=== PATIENT | female | born 1945 | race Caucasian/White ===

== ENCOUNTER 2016-09-28 15:39 | Inpatient (IN) | payer OTHER ==
[~2016-09-28] VITALS: Ht 160 cm; Wt 109.1 kg
[~2016-09-28 15:39] MED LIST: FLEXERIL5 MG PO
[2016-09-28 16:31] LABS: HEMATOCRIT 38.2 % (36.0-46.0); MCH 29.9 PG (29.0-34.0); MCHC 34.6 G/DL (30.0-36.0); MCV 86.6 FL (83-99); MEAN PLAT.VOLUME 9.7 uM^3 (9.5-12.4); PLATELET COUNT 313 K/uL (156-360); RBC DIS.WIDTH-CV 11.7 % (11.8-14.6); RBC DIS.WIDTH-SD 37.2 % (39-53); RED BLOOD COUNT 4.41 M/uL (3.80-5.20); WHITE BLOOD COUNT 9.4 K/uL (4.1-10.2)
[2016-09-28 16:39] LABS: CHLORIDE 102 mEq/L (99-109); POTASSIUM 3.6 mEq/L (3.7-5.4); SODIUM 134 mEq/L (136-147)
[2016-09-28 16:43] LABS: ANION GAP 10 MEQ/L (2-14); TOTAL BILIRUBIN 0.5 mg/dL (0.0-1.0)
[2016-09-28 16:44] LABS: GLUCOSE 468 mg/dL (70-99)
[2016-09-28 16:45] LABS: ALKALINE PHOSPHATASE 101 IU/L (3-129); GFR ESTIMATE (CALCULATED) 58 mL/min/
[2016-09-28 16:46] LABS: UREA NITROGEN (BUN) 15 mg/dL (9-23)
[2016-09-28 19:06] LABS: CARBON DIOXIDE (BICARBONATE) 25.7 MEQ/L (20-31)
[2016-09-28] MEDS ORDERED: AMLODIPINE-BEN1 EAC5 PO (19:36)
[2016-09-28 20:19] LABS: ADD MIUA? YES; BILIRUBIN NEGATIVE; BLOOD SMALL; COLOR YELLOW ((YELLOW)); GLUCOSE (STRIP) >=500; KETONES 20; LEUKOCYTES NEGATIVE; NITRITE NEGATIVE; PROTEIN (STRIP) NEGATIVE; SPECIFIC GRAVITY 1.025 (1.000-1.030); UROBILINOGEN 0.2 MG/DL (0.2-1.0)
[2016-09-28 20:29] LABS: BACTERIA NONE SEEN /HPF; EPITHELIAL CELLS RARE /HPF; MUCUS TRACE /LPF
[2016-09-28 21:22] LABS: POINT-OF-CARE METER ID UU13113800
[2016-09-28 23:33] VITALS: BP 147/64
[2016-09-28 23:39] LABS: POINT-OF-CARE METER ID UU14162508
[2016-09-29 04:27] VITALS: BP 137/68
[2016-09-29 07:15] VITALS: BP 135/67
[2016-09-29 11:40] VITALS: BP 132/64
[2016-09-29 15:00] VITALS: BP 148/70
[2016-09-29 16:31] LABS: POINT-OF-CARE USER ID PUTDRM
[2016-09-29 21:41] VITALS: BP 137/59
[2016-09-30 00:06] VITALS: BP 141/65
[2016-09-30 04:40] VITALS: BP 140/62
[2016-09-30 07:36] LABS: EOSINOPHIL (%) 1.9 % (0-5); EOSINOPHIL COUNT 0.1 K/uL (0-0.3); HEMATOCRIT 31.2 % (36.0-46.0); IMMATURE GRANULOCYTE (%) 0.4 % (0.0-0.7); INSTRUMENT ABS NEUTROPHIL CT 5.1 K/uL; LYMPHOCYTE COUNT 1.1 K/uL (1.0-2.8); MCH 29.7 PG (29.0-34.0); MCHC 33.7 G/DL (30.0-36.0); MCV 88.1 FL (83-99); MEAN PLAT.VOLUME 9.7 uM^3 (9.5-12.4); MONOCYTE (%) 6.1 % (3-12); MONOCYTE COUNT 0.4 K/uL (0-0.8); NEUTROPHIL (%) 75.7 % (45-76); NEUTROPHIL COUNT 5.1 K/uL (1.8-6.4); PLATELET COUNT 281 K/uL (156-360); RBC DIS.WIDTH-CV 11.6 % (11.8-14.6); RBC DIS.WIDTH-SD 37.5 % (39-53); RED BLOOD COUNT 3.54 M/uL (3.80-5.20); WHITE BLOOD COUNT 6.7 K/uL (4.1-10.2)
[2016-09-30 07:40] VITALS: BP 137/67
[2016-09-30 07:58] LABS: ALKALINE PHOSPHATASE 74 IU/L (3-129); ANION GAP 7 MEQ/L (2-14); CHLORIDE 106 MEQ/L (99-109); POTASSIUM 3.8 MEQ/L (3.7-5.4); SAMPLE HEMOLYSIS CHECK 0; SAMPLE ICTERIC CHECK 0; SAMPLE LIPEMIA CHECK 0; SODIUM 137 MEQ/L (136-147); TOTAL BILIRUBIN 0.6 MG/DL (0.0-1.0); UREA NITROGEN (BUN) 8 mg/dL (9-23)
[2016-09-30 08:00] LABS: GFR ESTIMATE (CALCULATED) > 59 mL/min/; GLUCOSE 223 mg/dL (70-99)
[2016-09-30 10:17] LABS: POINT-OF-CARE METER ID UU13113778
[2016-09-30 16:05] VITALS: BP 144/69
[2016-09-30 21:50] LABS: POINT-OF-CARE METER ID UU14162508
[2016-09-30 23:49] VITALS: BP 167/76
[2016-10-01 00:22] LABS: C DIFF TOXIN NEGATIVE (NEGATIVE)
[2016-10-01 00:25] LABS: PROBE CHECK PASS; SPECIMEN PROCESSING CONTROL PASS
[2016-10-01 07:55] VITALS: BP 156/74
[2016-10-01 15:20] VITALS: BP 149/71
[2016-10-01 23:25] VITALS: BP 135/61
[2016-10-02 08:20] VITALS: BP 138/65
[2016-10-02 16:58] VITALS: BP 173/77
[2016-10-02 23:45] VITALS: BP 142/68
[2016-10-03 08:08] VITALS: BP 151/68
[2016-10-03 12:16] LABS: GFR ESTIMATE (CALCULATED) > 59 mL/min/; VANCOMYCIN, TROUGH 13.2 MCG/ML (10-20)
[2016-10-03 14:10] VITALS: BP 189/78
[2016-10-03 18:34] VITALS: BP 157/69
[2016-10-03 23:28] VITALS: BP 142/65
[2016-10-04 06:46] LABS: EOSINOPHIL (%) 2.7 % (0-5); EOSINOPHIL COUNT 0.2 K/uL (0-0.3); HEMATOCRIT 32.9 % (36.0-46.0); IMMATURE GRANULOCYTE (%) 0.3 % (0.0-0.7); INSTRUMENT ABS NEUTROPHIL CT 4.5 K/uL; LYMPHOCYTE COUNT 1.2 K/uL (1.0-2.8); MCV 88.2 FL (83-99); MEAN PLAT.VOLUME 9.1 uM^3 (9.5-12.4); MONOCYTE (%) 7.5 % (3-12); MONOCYTE COUNT 0.5 K/uL (0-0.8); NEUTROPHIL (%) 70.9 % (45-76); NEUTROPHIL COUNT 4.5 K/uL (1.8-6.4); PLATELET COUNT 335 K/uL (156-360); RBC DIS.WIDTH-CV 11.9 % (11.8-14.6); RBC DIS.WIDTH-SD 38.5 % (39-53); RED BLOOD COUNT 3.73 M/uL (3.80-5.20); WHITE BLOOD COUNT 6.4 K/uL (4.1-10.2)
[2016-10-04 07:10] LABS: ALKALINE PHOSPHATASE 74 IU/L (3-129); ANION GAP 9 MEQ/L (2-14); CHLORIDE 109 MEQ/L (99-109); GFR ESTIMATE (CALCULATED) > 59 mL/min/; GLUCOSE 119 mg/dL (70-99); POTASSIUM 3.6 MEQ/L (3.7-5.4); SAMPLE HEMOLYSIS CHECK 0; SAMPLE ICTERIC CHECK 0; SAMPLE LIPEMIA CHECK 0; SODIUM 142 MEQ/L (136-147); TOTAL BILIRUBIN 0.5 MG/DL (0.0-1.0); UREA NITROGEN (BUN) 7 mg/dL (9-23)
[2016-10-04 07:15] LABS: Estimated Average Glucose 312 mg/dL (70-123); HEMOGLOBIN A1c (GLYCOHEMOGLOB) 12.5 % HGB (Below 5.7)
[2016-10-04 08:00] VITALS: BP 139/87
[2016-10-04 11:54] VITALS: BP 160/73
[2016-10-04 14:53] VITALS: BP 171/71
[2016-10-04 23:17] VITALS: BP 169/72
[2016-10-05 06:55] VITALS: BP 191/81
[2016-10-05] MEDS ORDERED: TYLENOL REGULA325 MG PO (11:24)
[2016-10-05] MEDS ORDERED: GLUCOVANCE 51 TABLET PO (11:24)
[2016-10-05] MEDS ORDERED: APRESOLINE50 MG PO (11:24)
[2016-10-05] MEDS ORDERED: XARELTO20 MG PO (11:24)
== END 2016-10-05 13:10 | disposition home or self-care (01) | DRG 540 ==
LOC: EME 15:39 → 2EASTP 21:31 → EDOF 21:31 → 2EASTP 22:22
PROVIDERS: Internal Medicine; Nurse Practitioner Family; Physician Assistant Medical
DX: M86.671 Other chronic osteomyelitis, right ankle and foot (principal); E11.69 Type 2 diabetes mellitus with other specified complication; E11.52 Type 2 diabetes mellitus with diabetic peripheral angiopathy with gangrene; L03.031 Cellulitis of right toe; L03.115 Cellulitis of right lower limb; I10 Essential (primary) hypertension; I73.9 Peripheral vascular disease, unspecified; M20.42 Other hammer toe(s) (acquired), left foot; M20.41 Other hammer toe(s) (acquired), right foot; E66.9 Obesity, unspecified; Z68.41 Body mass index [BMI] 40.0-44.9, adult; M20.10 Hallux valgus (acquired), unspecified foot; E11.65 Type 2 diabetes mellitus with hyperglycemia; E78.5 Hyperlipidemia, unspecified; W22.8XXA Striking against or struck by other objects, initial encounter; S93.114A Dislocation of interphalangeal joint of right lesser toe(s), initial encounter; I82.532 Chronic embolism and thrombosis of left popliteal vein
CPT/HCPCS: 73660; 80053; 80202; 81003; 82010; 82565; 82803; 82948; 83036; 83605; 85025; 85027; 87040; 87070; 87075; 87077; 87106; 87147; 87186; 87205; 87493; 93925; 99281; 99285; J0690; J1650; J1815; J2543; J3370; J7030; J7050

== ENCOUNTER → 2016-10-10 | Outpatient (CLI) | payer MEDICARE ==
[~2016-10-10] MED LIST changes: +AMLODIPINE-BEN1 EAC5 PO; +APRESOLINE50 MG PO; +GLUCOVANCE 51 TABLET PO; +TYLENOL REGULA325 MG PO; +XARELTO20 MG PO
== END | disposition home or self-care (01) ==
LOC: CDC 12:44
DX: E11.42 Type 2 diabetes mellitus with diabetic polyneuropathy (principal); R94.31 Abnormal electrocardiogram [ECG] [EKG]
CPT/HCPCS: 93000

== ENCOUNTER 2017-11-14 20:06 | Emergency (ER) | payer OTHER, MEDICARE ==
[~2017-11-14] VITALS: Ht 160 cm; Wt 111.8 kg
[2017-11-14 20:42] LABS: PTT 26.8 SEC (25-37)
[2017-11-14 23:51] VITALS: BP 161/84
== END 2017-11-14 23:52 | disposition home or self-care (01) ==
LOC: EME 20:06
PROC: 0HQ1XZZ Repair Face Skin, External Approach (ICD-10-PCS; principal; 2017-11-14)
DX: S01.112A Laceration without foreign body of left eyelid and periocular area, initial encounter (principal); W01.0XXA Fall on same level from slipping, tripping and stumbling without subsequent striking against object, initial encounter; Y99.0 Civilian activity done for income or pay; I10 Essential (primary) hypertension; E11.9 Type 2 diabetes mellitus without complications; Z79.01 Long term (current) use of anticoagulants; Z86.718 Personal history of other venous thrombosis and embolism; Z87.891 Personal history of nicotine dependence
CPT/HCPCS: 70450; 85610; 85730; 99281; 99284